=== PATIENT | female | born 1980 | race Two or more races ===

== ENCOUNTER 2022-06-04 14:30 | Emergency (ER) | payer SELFPAY ==
[~2022-06-04] VITALS: Ht 154.9 cm; Wt 76.5 kg
[2022-06-04] MEDS ORDERED: CEPH-510 PO (17:26)
[2022-06-04] MEDS ORDERED: IBUP800T26 PO (17:26)
[2022-06-04] MEDS ORDERED: TETANUS-DIPTH-ACEL PERTUSSIS 0.5ML SYR Tdap IM ONE (17:30)
[2022-06-04 18:25] VITALS: BP 148/81
== END 2022-06-04 18:30 | disposition home or self-care (01) ==
LOC: ER 14:30
DX: S61.012A Laceration without foreign body of left thumb without damage to nail, initial encounter (principal); W27.8XXA Contact with other nonpowered hand tool, initial encounter; Y93.89 Activity, other specified; Y92.89 Other specified places as the place of occurrence of the external cause; Y99.8 Other external cause status
CPT/HCPCS: 12001; 90471; 90715

== ENCOUNTER 2024-08-05 15:39 | Emergency (ER) | payer MEDICAID, OTHER ==
[~2024-08-05] VITALS: Ht 154.9 cm; Wt 74.5 kg
[~2024-08-05 15:39] MED LIST: CEPH-510 PO; IBUP-1455 PO
--- NOTE | 2024-08-05 16:12 | ED.PDOC ---
History of Present Illness HPI Comments 44-year-old female who comes in with chief complaint of possible allergic reaction. [place] the [place] and then later in the evening the patient started having a significant amount of itching. Today, the patient is started having some throat closing. There has been no juanjose rtness a breath, vomiting or diarrhea. Upon arrival, the patient has a rash to the extremities as well as to the abdomen and back area. Upon arrival, the patient is not in any respiratory distress. At this time, the patient states that she took Benadryl yesterday Time Seen by MD: 15:46 Reviewed Notes: Nurses Notes, Medications, Allergies (No allergies to medications) Allergies: Coded Allergies: NO KNOWN ALLERGIES (Unverified , 06/04/22) Home Meds Active Scripts Diphenhydramine Hcl (Benadryl Allergy) 25 Mg Cap, 25 MG PO BID for 3 Days, #10 CAP Prov:DENIZ PENNY MD 08/05/24 Methylprednisolone (Medrol Dosepak) 4 Mg Jann, 4 MG PO UD, #21 TAB UAD Prov:DENIZ PENNY MD 08/05/24 Ibuprofen Micronized (Ibuprofen) 800 Mg Tab, 800 MG PO Q8HP PRN, #20 TAB Prov:ANASTASIA SENA PAC 06/04/22 Cephalexin ( Keflex 500) 500 Mg Cap, 1 CAP PO QID for 5 Days, #20 CAP Prov:ANASTASIA SENA PAC 06/04/22 Information Source: Patient Mode of Arrival: Ambulatory Severity: Moderate Timing: Days Duration: Since onset Prehospital treatment: None Associated signs and symptoms Urticaria as well as the feeling of the throat closing Past Medical History PAST MEDICAL HISTORY: Denies Surgical History: Denies all surgeries FOOD PHOTOGRAPHER History: No Pertinent FOOD PHOTOGRAPHER History Family History Family History: Family hx of DM Social History Smoker: Non-Smoker Alcohol: Denies ETOH Use Drugs: Denies Drug Use Lives In: Home Constitutional: denies: chills, diaphoresis, fatigue, fever, malaise, sweats, weakness, others EENTM: reports: throat swelling; denies: blurred vision, double vision, ear bleeding, ear discharge, ear drainage, ear pain, ear ringing, eye pain, eye redness, hearing loss, mouth pain, mouth swelling, nasal discharge, nose bl eeding, nose congestion, nose pain, photophobia, tearing, throat pain, voice changes, others Respiratory: denies: cough, hemoptysis, orthopnea, SOB at rest, shortness of breath, SOB with excertion, stridor, wheezing, others Cardiovascular: denies: chest pain, dizzy spells, diaphoresis, Dyspnea on exertion, edema, irregular heart beat, left arm pain, lightheadedness, palpitations, PND, syncope, others Gastrointestinal: denies: abdomen distended, abdominal pain, blood streaked bowels, constipated, diarrhea, dysphagia, difficulty swallowing, hematemesis, melena, nausea, poor appetite, poor fluid intake, rectal bleeding, rectal pain, vomiting, others Genitourinary: denies: abnormal vagina bleeding, burning, dyspareunia, dysuria, flank pain, frequency, hematuria, incontinence, pain, , vagina di scharge, urgency, others Neurological: denies: dizziness, fainting, headache, left sided numbness, left sided weakness, numbness, paresthesia, pre-existing deficit, right sided numbness, right sided weakness, seizure, speech problems, tingling, tremors, weakness, others Musculoskeletal: denies: back pain, gout, joint pain, joint swelling, muscle pain, muscle stiffness, neck pain, others Integumetry: reports: rash; denies: bruises, change in color, change in hair/nails, dryness, laceration, lesions, lumps, wounds, others Allergic/Immunocompromised: reports: Hives, Itching; denies: Difficulty Healing, Frequent Infections, others Hematologic/Lymphatic: denies: anemia, blood clots, easy bleeding, easy bruising, swollen glands, others Endocrine: denies: excessive hunger, excessive sweating, excessive thirst, excessive urination, flushing, intolerance to cold, intolerance to heat, unexplained weight gain, unexplained weight loss, others Psychiatric: denies: anxiety, bipolar disorder, depression, hopeless, panic disorder, schizophrenia, sleepless, suicidal, others Physical Exam General Appearance: Mild Distress HEENT: Normal ENT Inspection, Pharynx Normal, TMs Normal Neck: Full Range of Motion, Non-Tender, Normal, Normal Inspection Respiratory: Chest Non-Tender, Lungs Clear, No Accessory Muscle Use, No Respiratory Distress, Normal Breath Sounds Cardiovascular: No Edema, No JVD, No Murmur, No Gallop, Normal Peripheral Pulses, Regular Rate/Rhythm Breast Exam: Deferred Gastrointestinal: No Organomegaly, Non Tender, No Pulsatile Mass, Normal Bowel Sounds, Soft Genitalia: Deferred Pelvic: Deferred Rectal: Deferred Extremities: No calf tenderness, Normal capillary refill, Normal inspection, Normal range of motion, Non-tender, No pedal edema Musculoskeletal : Apperance: Normal Neurologic: Alert, transmission inspector II-XII nml as Tested, No Motor Deficits, Normal Affect, Normal Mood, No Sensory Deficits Cerebellar Function: Normal Reflexes: Normal Skin: Dry, Rash Lymphatic: No Adenopathy Was a procedure done? Was a procedure done?: No Differential Dx Considerations may include: Allergic reaction X-Ray, Labs, Meds, VS Vital Signs Date Time Temp Pulse Resp B/P (MAP) Pulse Ox O2 Delivery O2 Flow Rate FiO2 08/05/24 16:13 97.1 82 20 148/82 (104) 98 97.1 IV Hep-Lock was established The patient states that she is feeling much better The patient was given Solu-Medrol 125 mg IV push The patient was given Benadryl 25 mg IV push The patient is being discharged with a diagnosis of acute allergic reaction The patient was given a prescription of Benadryl and a Medrol Dosepak Time of 1ST Reevaluation: 16:29 Reevaluation 1ST: Unchanged Patient Education/Counseling: Diagnosis, Treatment, Prognosis, Need For Follow Up Family Education/Counseling: No Family Present Departure 1 Departure Time of Disposition: 19:09 Impression: Primary Impression: Acute allergic reaction Qualified Codes: T78.40XA - Allergy, unspecified, initial encounter Disposition: HOME / SELF CARE / HOMELESS Condition: Fair e-Prescriptions Diphenhydramine Hcl (Benadryl Allergy) 25 Mg Cap 25 MG PO BID for 3 Days, #10 CAP Prov: DENIZ PENNY MD 08/05/24 Methylprednisolone (Medrol Dosepak) 4 Mg Jann 4 MG PO UD, #21 TAB UAD Prov: DENIZ PENNY MD 08/05/24 Discharged With: Self Critical Care Note Critical Care Time?: No Stability Stability form required: No Heart Score Heart Score: Heart Score Response (Comments) Value History N/A 0 EKG N/A 0 Age N/A 0 Risk Factors N/A 0 Troponin N/A 0 Total 0 DENIZ PENNY MD August 05, 2024 16:12
[2024-08-05] MEDS: SODIUM CHLORIDE 0.9% 1,000 ML IV ONE (16:15)
[2024-08-05] MEDS: diphenhdrAMINE HCL 50 MG/1 ML VL IV ONE ×2 (16:15→22:14)
[2024-08-05] MEDS ORDERED: DIPH25CA66 PO (18:09)
[2024-08-05] MEDS ORDERED: METH4PAK PO (18:09)
[2024-08-05 20:12] VITALS: BP 154/87; PULSE 80; RESP 21; TEMP 98; O2SAT 99
[2024-08-05] MEDS: methylPREDNISolone SOD SUCC 125 MG/2 ML VL IV ONE (20:44)
== END 2024-08-05 22:19 | disposition home or self-care (01) ==
LOC: ER 15:39
DX: T78.40XA Allergy, unspecified, initial encounter (principal); X58.XXXA Exposure to other specified factors, initial encounter
CPT/HCPCS: 96361; 96374; 96375; 99284; J1200; J2919; J7030